=== PATIENT | male | born 1990 | race Hispanic/Latino ===

== ENCOUNTER 2018-05-03 14:55 | Inpatient (IN) | payer MEDICAID ==
[2018-05-03 15:40] LABS: BASO # 0.1 K/uL (0.0-0.2); BASO % 0.7 % (0.0-2.0); EOS # 0.1 K/uL (0.0-0.7); EOS % 0.7 % (0.0-4.0); HEMOGLOBIN 14.4 g/dL (12.0-18.0); LYMPH # 1.8 K/uL (1.0-4.3); LYMPH % 20.2 % (20.0-40.0); MEAN CELL VOLUME 84.6 fL (80.0-94.0); MEAN CORPUSCULAR HEMOGLOBIN 28.7 pg (27.0-31.0); MEAN CORPUSCULAR HGB CONC 33.9 g/dL (33.0-37.0); MONO # 0.6 K/uL (0.0-0.8); MONO % 7.1 % (0.0-10.0); NEUT # 6.4 K/uL (1.8-7.0); NEUT % 71.3 % (50.0-75.0); RBC 5.02 Mil/uL (4.40-5.90); RED CELL DISTRIBUTION WIDTH 14.2 % (11.5-14.5)
[2018-05-03 15:49] LABS: URINE AMORPHOUS SEDIMENT RARE /ul (<OCC); URINE BILIRUBIN NEGATIVE (NEGATIVE); URINE BLOOD 1+ (NEGATIVE); URINE CLARITY Clear (Clear); URINE COLOR Yellow (YELLOW); URINE GLUCOSE (UA) NORMAL (Normal); URINE LEUKOCYTE ESTERASE NEG Leu/uL (Negative); URINE PROTEIN NEGATIVE (NEGATIVE)
[2018-05-03 15:54] LABS: ALB/GLOB RATIO 1.2 (1.0-2.1)
[2018-05-03 15:56] LABS: ALBUMIN 4.1 g/dL (3.5-5.0); ALT/SGPT 39 U/L (21-72); AST/SGOT 35 U/L (17-59); BLOOD UREA NITROGEN 16 mg/dL (9-20); GFR NON-AFRICAN AMERICAN > 60
[2018-05-03 16:15] LABS: BENZODIAZEPINES, UR NEGATIVE (NEGATIVE); PHENCYCLIDINE, UR NEGATIVE (NEGATIVE)
[2018-05-03 16:17] LABS: BARBITURATES, UR POSITIVE (NEGATIVE); OPIATES, UR POSITIVE (NEGATIVE)
--- NOTE | 2018-05-03 17:38 | C.PDOC ---
History Of Present Illness 27 y/o male presents to ED requesting detox from Xanax, Cocaine and Heroin. Pt states percocet and xanax are prescribed to him for his anxiety and pain. ADmits to IVDA and reports last used earlier today. Patient admits to history of withdrawal seizures. Denies SI/HI or any other complaints at this time. Time Seen by Provider: 05/03/18 15:05 Chief Complaint (Nursing): Substance Abuse History Per: Patient History/Exam Limitations: no limitations Onset/Duration Of Symptoms: Days Current Symptoms Are (Timing): Still Present Suicide/Self Injury Attempted (Context): None Modifying Factor(s): Narcotics, Cocaine Past Medical History Reviewed: Historical Data, Nursing Documentation, Vital Signs Vital Signs: Last Vital Signs Temp 98.2 F 05/03/18 20:01 Pulse 67 05/03/18 20:01 Resp 18 05/03/18 20:01 BP 138/88 05/03/18 20:01 Pulse Ox 99 05/03/18 20:01 - Medical History PMH: No Chronic Diseases Surgical History: No Surg Hx Family History: States: No Known Family Hx - Social History Hx Alcohol Use: No Hx Substance Use: Yes Review Of Systems Constitutional: Negative for: Fever, Chills Cardiovascular: Negative for: Chest Pain Respiratory: Negative for: Shortness of Breath Gastrointestinal: Negative for: Nausea, Vomiting Psych: Positive for: Other (substance abuse). Negative for: Depression, Suicidal ideation, Withdrawal Physical Exam - Physical Exam Appears: Non-toxic, No Acute Distress Skin: Warm, Dry, Other (track reed to upper extremities and right lower leg) Head: Atraumatic, Normacephalic Eye(s): bilateral: Normal Inspection, EOMI Nose: Normal Oral Mucosa: Moist Neck: Normal ROM, Supple Chest: Symmetrical Cardiovascular: Rhythm Regular Respiratory: Normal Breath Sounds, No Rales, No Rhonchi, No Wheezing Gastrointestinal/Abdominal: Soft, No Tenderness, No Guarding, No Rebound Extremity: Normal ROM Neurological/Psych: Oriented x3, Normal Speech, Normal Cognition ED Course And Treatment - Laboratory Results Result Diagrams: 05/03/18 15:32 05/03/18 15:32 O2 Sat by Pulse Oximetry: 99 (RA) Pulse Ox Interpretation: Normal Progress Note: PT was seen and evaluated by group social worker, agreed up plan and admission under Dr Hickman. Disposition - Disposition Disposition: HOSPITALIZED Disposition Time: 20:00 Condition: STABLE - Clinical Impression Clinical Impression: Opioid dependence, Depressed, Drug dependence - PA / [employer] / Resident Statement MD/DO has reviewed & agrees with the documentation as recorded. - Scribe Statement The provider has reviewed the documentation as recorded by the Treibjacqueline Pham All medical record entries made by the Silvana were at my direction and personally dictated by me. I have reviewed the chart and agree that the record accurately reflects my personal performance of the history, physical exam, medical decision making, and the department course for this patient. I have also personally directed, reviewed, and agree with the discharge instructions and disposition.
--- NOTE | 2018-05-03 19:08 | PCM.BM ---
<Christina Zuñiga - Last Filed: 05/03/18 19:07> Treatment Plan Problems - Problems identified on initial assessmt potiential for opiate withdrawal Date Initiated: 05/03/18 Time Initiated: 19:07 Assessment reference: NA Status: Active Treatment assets and liabiliti Patient Assests: motivated, physically healthy, cognitively intact Patient Liabilities: physical pain, substance abuse - Milieu Protocol Maintain good personal hygiene: daily Encourage regular showers, daily Remind patient to perform daily oral care, daily Assist patient to perform ADL's Maintain personal safety: every shift Educate patient to report safety concerns to staff, every shift Monitor environment for contraband/sharps Medication safety: Monitor for expected outcome, potential side effects: every shift, Assess barriers to learning: every shift, Assess readiness for medication education: every shift <Lonny Penaloza - Last Filed: 05/04/18 16:22> - Diagnosis (1) Sedative, hypnotic or anxiolytic use disorder, severe, dependence Status: Acute Interventions: 05/04/18 16:22 * Assess 7x/week regarding severity of withdrawal * Educate regarding risks, benefits, side effects and alternatives of medications * Use Motivational Interviewing for abstinence * Use CBT for relapse prevention * Medication management for withdrawal symptoms * Encourage medication assisted treatment * (2) Opioid dependence Status: Acute Interventions: 05/04/18 16:22 * Assess 7x/week regarding severity of withdrawal * Educate regarding risks, benefits, side effects and alternatives of medications * Use Motivational Interviewing for abstinence * Use CBT for relapse prevention * Medication management for withdrawal symptoms * Encourage medication assisted treatment * <Xi Lewis - Last Filed: 05/05/18 08:04> Family Contact Family involvement: Justoy/SO not involved - Goals for Treatment Patient goals for treatment: Complete detox and apply for short-term rehab. Discharge/Continuing Care - Education Needs Education Needs: Patient Medication, Patient Diagnosis/Disease Process, Patient Coping Skills, Patient Anger Management skills, Patient Placement options, Patient Community resources - Discharge Discharge Criteria: Free of agitation, No longer exhibiting s/s of withdrawal, Reduction of target symptoms Discharge to:: Substance Abuse Rehab - Treatment Team Participation Patient/Family/SO Statement: 05/05/18 08:04 "I wanna try to get in to [facility]..." Discussed with Family/SO: No Was Patient/Family/SO present at Treatment Team Meeting: Yes
[2018-05-04] MEDS ORDERED: Aluminum Hydroxide/Magnesium Hydroxide Susp (30 mL) PO PRN (00:19)
--- NOTE | 2018-05-04 16:22 | PCM.PSYCH ---
Initial Psychiatric Evaluation - Initial Psychiatric Evaluation Type of Admission: Voluntary Legal Status: Capacity Chief Complaint (in patient's own words): "I feel very sick" History of Present Illness and Precipitating Events: The pt is a 27 y/o WM who is currently living with his stepmother. Pt has a girlfriend and one child and does not work currently. Pt came into [facility] yesterday due to fentanyl, heroin and Xanax detox. Pt reported he began using heroin at the age of 17, his last usage was 15 bags through an IV in his arm and uses 20 bags on a daily. Pt began using cocaine at the age of 17, reported of last using cocaine 3 days ago and uses 20 bags on a daily through an IV. Pt began using Xanax at the age of 15, last usage was couple of days ago and reported of using 4mg-10mg of Xanax intranasally on a daily. Pt reported of having a hx of seizures and his last seizure was year ago. pt has 10+ overdose events in the past, last overdose was 1 week ago and was reversed by narcan. Pt has multiple detox attempts in the past, last detox attempt in March. Pts longest sobriety was for 1 year while he was incarcerated in 2016. Pt denies depressed mood, SI/HI or delusions, but he is intense and pt does complain of mood swings and irritability. Pt smokes 1/2 PPD Psych Hx: Depression, Anxiety, Bipolar Disorder. Pt has not been complaint with his psychiatric medication. No suicide attempts Traumatic Hx: denied Family psych Hx: Mother has hx of Bipolar and Father has hx of substance abuse. Medical Hx: Hepatitis C, not treated Current Medications: Active Medications Generic Name Dose Route Start Last Admin Trade Name Freq PRN Reason Stop Dose Admin Al Hydrox/Mg Hydrox/Simethicone 30 ml 05/04/18 00:19 Maalox 30 Ml PO TID PRN Indigestion / Heartburn Chlordiazepoxide 25 mg 05/03/18 19:42 05/04/18 09:09 Librium PO 25 mg Q6 PRN Administration alcohol withdrawal Chlordiazepoxide 25 mg 05/04/18 10:00 05/04/18 16:02 Librium PO 05/09/18 09:59 25 mg Q6H SAIMA Administration Taper Clonidine HCl 0.1 mg 05/03/18 19:57 Catapres PO Q6 PRN hypertension Gabapentin 300 mg 05/04/18 10:00 05/04/18 13:34 Neurontin PO 300 mg TID SAIMA Administration Hydroxyzine HCl 25 mg 05/04/18 00:19 Atarax PO Q6 PRN Anxiety Loperamide HCl 2 mg 05/04/18 00:19 Imodium PO Q8 PRN Diarrhea Methadone HCl 15 mg 05/04/18 10:00 05/04/18 09:10 Methadone PO 05/07/18 00:29 15 mg DAILY SAIMA Administration Taper Nicotine 1 patch 05/04/18 13:00 05/04/18 13:34 Nicoderm Cq TD 1 patch DAILY SAIMA Administration Ondansetron HCl 4 mg 05/04/18 00:19 Zofran Tab PO Q8 PRN Nausea/Vomiting Quetiapine Fumarate 50 mg 05/04/18 10:00 05/04/18 14:49 Seroquel PO 50 mg TID SAIMA Administration Quetiapine Fumarate 200 mg 05/04/18 22:00 Seroquel PO HS SAIMA Trazodone HCl 50 mg 05/03/18 19:57 Desyrel PO HS PRN Insomnia Past Psychiatric History - Past Psychiatric History Previous Treatment History: Intensive Outpatient Pertinent Medical Hx (Current Medical&Sleep Prob, Allergies): Allergies Allergy/AdvReac Type Severity Reaction Status Date / Time No Known Allergies Allergy Unverified 05/03/18 15:03 No Known Home Med 05/03/18 Review of Systems - Psychiatric Psychiatric: Abnormal Sleep Pattern, Anhedonia, Anxiety, Change in Appetite, Difficulty Concentrating, Irritability. absent: Hallucinations, Homicidal Ideation, Paranoia, Suicidal Ideation Mental Status Examination - Personal Presentation Personal Presentation: Looks stated age - Affect Affect: Constricted - Motor Activity Motor Activity: Calm - Reliability in Providing Information Reliability in Providing Information: Good - Speech Speech: Organized - Mood Mood: Anxious, Other (irate due to wdw) - Formal Thought Process Formal Thought Process: No Impairment - Cognitive Functions Orientation: Person, Place, Situation, Time Sensorium: Alert Attention/Concentration: Easily distracted Estimate of Intelligence: Average Judgement: Intact, as evidence by: Insight regarding need for hospitalization Memory: Recent intact, as evidence by: Ability to recall events of the day, Remote intact, as evidenced by: Abilit to recall sig. life events - Risk Risk: Seizure, Withdrawal, Diminished functioning - Strength & Assets Inventory Strength & Assets Inventory: Cooperative - Limitations Limitations: Living alone, Other DSM 5 DX - DSM 5 DSM 5 Diagnosis: Opioid Use Disorder, severe Opioid Withdrawal Sedative, hypnotic, anxiolytic use disorder, severe Sedative, hypnotic, anxiolytic withdrawal Cocaine Use disorder, moderate Bipolar Disorder -Type I - Recommended/Plan of Treatment Treatment Recommendations and Plan of Treatment: Start Methadone 15mg for Opioid use disorder Gabapentin 300mg for mood stabilization Librium 25mg for Sedative, hypnotic, anxiolytic use disorder As need medications All risks, benefits and alternatives of the meds discussed, and the pt agreed and understood. Attend groups and activities Individual therapy daily Psychoeducation and support daily Encourage compliance with meds and after care Refer to outpatient program Teach healthy lifestyle methods, i.e. diet, exercise, meditation Smoking cessation and patch if needed Projected ELOS: 4-5 days Prognosis: good w treatment - Smoking Cessation Smoking Cessation Initiated: Yes
--- NOTE | 2018-05-05 13:26 | PCM.PYCHPN ---
Psychiatric Progress Note - Psychiatric Progress Note Patient seen today, length of contact: 16 min Patient Chief Complaint: "I am still withdrawing" Problems Identified/Issues Discussed: The pt is seen, chart reviewed, case discussed with staff. The pt is compliant with medications and reports no side-effects. Symptoms are improving but needs more time to stabilize. Pt attends groups and activities. Support given, psycho-education provided. After care discussed. Medication Change: Yes (detox changes daily, add 5 mg methadone) Medical Record Reviewed: Yes Mental Status Examination - Cognitive Function Orientation: Person, Place, Situation, Time Memory: Intact Attention: Poor Concentration: Poor Association: WNL Fund of Knowledge: Poor - Mood Mood: Anxious, Other (irate due to wdw) - Affect Affect: Constricted - Speech Speech: Appropriate - Formal Thought Process Formal Thought Process: No Impairment - Suicidal Ideation Suicidal Ideation: No - Homicidal Ideation Homicidal Ideation: No Goal/Treatment Plan - Goal/Treatment Plan Need for Continued Stay: Discharge may exacerbated symptoms, Severe functional impairment Progress Toward Problem(s) and Goals/Treatment Plan: Methadone taper for opioids Gabapentin 300mg for mood stabilization Librium taper for Sedative, hypnotic, anxiolytic use disorder Seroquel for bipolar d/o As need medications All risks, benefits and alternatives of the meds discussed, and the pt agreed and understood. Attend groups and activities Individual therapy daily Psychoeducation and support daily Encourage compliance with meds and after care Refer to outpatient program Teach healthy lifestyle methods, i.e. diet, exercise, meditation Smoking cessation and patch if needed
[2018-05-06 21:38] VITALS: O2SAT 99
[2018-05-07 08:31] VITALS: BP 125/84; PULSE 100; RESP 19; TEMP 97.5
--- NOTE | 2018-05-07 09:07 | PCM.PYCHDC ---
Mental Status Examination - Mental Status Examination Orientation: Person Discharge Summary - Discharge Note Consultations:: List each consultation separately and include: 1. Reason for request. 2. Findings. 3. Follow-up Summary of Hospital Course include:: 1. Description of specific treatment plan utilized for patients during their course of treatmen. 2. Summarize the time- course for resolution of acute symptoms and/or regressed behaviors. 3. Describe issues identified and worked on during hospitalization. 4. Describe medication utilized. 5. Describe medical problems identified and treated. 6. Reassessment of suicide risk Summary of Hospital Course: The pt is a 27 y/o WM who is currently living with his stepmother. Pt has a girlfriend and one child and does not work currently. Pt came into [facility] yesterday due to fentanyl, heroin and Xanax detox. Pt reported he began using heroin at the age of 17, his last usage was 15 bags through an IV in his arm and uses 20 bags on a daily. Pt began using cocaine at the age of 17, reported of last using cocaine 3 days ago and uses 20 bags on a daily through an IV. Pt began using Xanax at the age of 15, last usage was couple of days ago and reported of using 4mg-10mg of Xanax intranasally on a daily. Pt reported of having a hx of seizures and his last seizure was year ago. pt has 10+ overdose events in the past, last overdose was 1 week ago and was reversed by narcan. Pt has multiple detox attempts in the past, last detox attempt in March. Pts longest sobriety was for 1 year while he was incarcerated in 2016. Pt denies depressed mood, SI/HI or delusions, but he is intense and pt does complain of mood swings and irritability. Pt smokes 1/2 PPD Psych Hx: Depression, Anxiety, Bipolar Disorder. Pt has not been complaint with his psychiatric medication. No suicide attempts Traumatic Hx: denied Family psych Hx: Mother has hx of Bipolar and Father has hx of substance abuse. Medical Hx: Hepatitis C, not treated He wanted to leave a day early - risks discussed, understood - and he will go to [facility], while wait-listed at [facility]. - Diagnosis (1) Sedative, hypnotic or anxiolytic use disorder, severe, dependence Current Visit: Yes Status: Acute (2) Opioid dependence Current Visit: Yes Status: Acute - Final Diagnosis (DSM 5) Condition upon Discharge: STABLE Disposition: HOME/ ROUTINE Follow-up Treatment Plan: Methadone taper for opioids Gabapentin 300mg for mood stabilization Librium taper for Sedative, hypnotic, anxiolytic use disorder Seroquel for bipolar d/o As need medications All risks, benefits and alternatives of the meds discussed, and the pt agreed and understood. Attend groups and activities Individual therapy daily Psychoeducation and support daily Encourage compliance with meds and after care Refer to outpatient program Teach healthy lifestyle methods, i.e. diet, exercise, meditation Smoking cessation and patch if needed Prescriptions/Medication Reconciliation: Gabapentin [Neurontin] 300 mg PO TID #90 cap hydrOXYzine HCl [Atarax] 25 mg PO DAILY PRN #30 tab PRN Reason: Anxiety QUEtiapine [Seroquel] 100 mg PO TID #90 tab traZODone [Desyrel] 50 mg PO HS PRN #30 tab PRN Reason: Insomnia
== END 2018-05-07 09:15 | disposition home or self-care (01) | DRG 744 ==
LOC: C.ER 14:55 → C.7T 18:29 → C.7D 19:01
PROVIDERS: ADMIT Psychiatry & Neurology Psychiatry; ATTEND Psychiatry & Neurology Psychiatry
PROC: HZ2ZZZZ Detoxification Services for Substance Abuse Treatment (ICD-10-PCS; principal; 2018-05-03)
PROC: HZ81ZZZ Medication Management for Substance Abuse Treatment, Methadone Maintenance (ICD-10-PCS; 2018-05-03)
PROC: GZ3ZZZZ Medication Management (ICD-10-PCS; 2018-05-03)
PROC: HZ80ZZZ Medication Management for Substance Abuse Treatment, Nicotine Replacement (ICD-10-PCS; 2018-05-03)
PROC: HZ59ZZZ Individual Psychotherapy for Substance Abuse Treatment, Supportive (ICD-10-PCS; 2018-05-03)
PROC: HZ46ZZZ Group Counseling for Substance Abuse Treatment, Psychoeducation (ICD-10-PCS; 2018-05-03)
DX: F11.23 Opioid dependence with withdrawal (principal); F13.239 Sedative, hypnotic or anxiolytic dependence with withdrawal, unspecified; F14.20 Cocaine dependence, uncomplicated; F31.9 Bipolar disorder, unspecified; F41.9 Anxiety disorder, unspecified; F17.210 Nicotine dependence, cigarettes, uncomplicated; B18.2 Chronic viral hepatitis C